=== PATIENT | female | born 1995 | race Hispanic/Latino ===

== ENCOUNTER 2017-03-20 12:48 | Emergency (ER) | payer OTHER, SELFPAY ==
[2017-03-20 13:17] LABS: Bilirubin Negative (Negative); Blood, Urine Trace (Negative); Glucose, Urine (Dipstick) Negative (Negative); Ketone, Urine Trace mg/dL (Negative); Nitrite Negative (Negative); Protein, Urine (Dipstick) Negative (Neg-Trace)
[2017-03-20 13:23] LABS: Bacteria/HPF 2+ HPF (None Seen); Hyaline Casts/LPF 4-6 HYALINE CAST LPF (0-3 Hyaline)
[2017-03-20 13:25] LABS: #Lymphocytes 1.1 thou/uL (1.20-3.40); #Monocytes 0.6 thou/uL (0.11-0.59); #Neutrophils 6.4 thou/uL (1.40-6.50); %Basophils 0.2 % (0.0-1.0); %Eosinophils 0.3 % (0.0-10.0); %Monocytes 6.7 % (0.0-4.0); Hematocrit 36.6 % (36.0-47.0); Mean Platelet Volume 7.8 fL (7.4-10.4); Red Blood Cell (RBC) Count 4.75 mill/uL (4.00-5.20); White Blood Cell (WBC) Count 8.2 thou/uL (4.8-10.8)
[2017-03-20 13:47] LABS: Anion Gap 13 mmol/L (10-20); BUN (Urea Nitrogen) 9 mg/dL (7.0-18.7); Calc. Creatinine Clearance 0 mL/min (70-130); Calcium 9.7 mg/dL (7.8-10.44); Carbon Dioxide 22 mmol/L (22-29); Chloride 104 mmol/L (98-107); Estimated GFR-MDRD Greater than 90
--- NOTE | 2017-03-20 14:44 | ULT ---
ULTRASOUND LESS THAN 14 WEEKS: History: 21-year-old female with positive home test with left sided abdominal pain for three days an d vaginal bleeding. FINDINGS: There is an early viable intrauterine fetus. heart rate 165 beats/minute. [place]-rump length 1.6 cm equalling 8 weeks 0 days. Gestational sac size 2.6 cm equalling 7 weeks 4 da ys. Right and left ovaries appear unremarkable. Vascular duplex with color and spectral doppler imaging of both ovaries demonstrates arterial end belkys w and venous outflow. No evidence of ovarian torsion. IMPRESSION: Early single viable intrauterine at 7 weeks 6 days with STACIE of 7-5-18. No evidence for retr o chorionic hemorrhage. POS: [facility]
== END 2017-03-20 15:15 | disposition home or self-care (01) ==
LOC: ERS 12:48
DX: O23.41 Unspecified infection of urinary tract in pregnancy, first trimester (principal); O99.511 Diseases of the respiratory system complicating pregnancy, first trimester; J45.909 Unspecified asthma, uncomplicated; Z3A.01 Less than 8 weeks gestation of pregnancy
CPT/HCPCS: 36415; 76856; 80048; 81003; 81015; 84702; 84703; 85025; 86850; 86900; 86901; 93976

== ENCOUNTER 2017-07-11 11:02 | Outpatient (CLI) | payer BC, OTHER | END 2017-07-11 11:03 | disposition home or self-care (01) | LOC: BICULT 11:02 | PROVIDERS: ATTEND Family Medicine | DX: Z34.82 Encounter for supervision of other normal pregnancy, second trimester (principal); Z3A.24 24 weeks gestation of pregnancy | CPT/HCPCS: 76805 ==

== ENCOUNTER 2017-10-04 21:24 | Day surgery (SDC) | payer OTHER, BC ==
[2017-10-04 21:52] VITALS: BMI 29.0
--- NOTE | 2017-10-04 22:30 | PDOC.LDHP ---
Labor and Delivery H&P Chief complaint: contractions HPI: 21 y/o at 36w3d, patient of Dr. Neva Haynes, presents with contractions for the last 2 hours. Denies VB, LOF, or decreased FM. ROS neg for HEENT, cv, pulm, gi, gu, neuro, psych, skin, musculoskeletal or constitutional sx other than mentioned above. OB History Details: 1 prior LTCS, 1 successful term Current complications: none Past Medical History: Asthma Current medications: pre- vitamins Previous surgical history: low tranverse CS Allergies/Adverse Reactions: Allergies Allergy/AdvReac Type Severity Reaction Status Date / Time No Known Allergies Allergy Verified 10/04/17 21:53 Social history: none - Physical Exam Vital signs reviewed and normal: yes General: NAD, resting Lungs: nonlabored breathing Abdomen: gravid Extremeties: no edema FHT: category 1 (140s, mod variability, + accels, single variable decel) [place] contractions every: occasional - Vaginal Exam cm dilated: 0 Effacement: 0% Station: -3 - Assessment 21 y/o at 36w3d with no e/o active labor. BPP ordered for single variable deceleration was 8/8 with normal DAMARIS. - Plan -: D/c home with precautions. Advised to keep all appointments.
--- NOTE | 2017-10-04 23:43 | ULT ---
ULTRASOUND BIOPHYSICAL PROFILE: 10/04/17 HISTORY: decelerations. 36 weeks. COMPARISON: None. FINDINGS: Single viable intrauterine . Amniotic fluid index measures 16.1 cm. heart rate documen tate at 130 beats per minute. Umbilical artery peak systolic velocity 58.6 cm/s, end diastolic velocit y 23.1 cm/s, systolic/diastolic ratio 2.54. The biophysical profile score is 8/8. Average ultrasound age of 35 weeks, 4 day. Estimated date of delivery 11/04/17. Biparietal diameter 35 week, 1 day, 8.7 cm Head circumference 35 week, 2 day, 31.47 cm Femur length 36 week, 1 day, 7.04 cm Cervical length is approximately 2.4 cm. IMPRESSION: Biophysical profile score of 8/8. POS: [facility]
== END 2017-10-05 00:10 | disposition home or self-care (01) ==
LOC: L&D/OP 21:24
PROVIDERS: ATTEND Family Medicine
DX: O47.03 False labor before 37 completed weeks of gestation, third trimester (principal); Z3A.36 36 weeks gestation of pregnancy; Z79.899 Other long term (current) drug therapy
CPT/HCPCS: 76819

== ENCOUNTER 2017-10-18 15:45 | Inpatient (IN) | payer BC, OTHER ==
[~2017-10-18 15:45] MED LIST: Bupivacaine/Epinephrine 0.25% 30 ML VIAL ONE
[2017-10-18 16:11] VITALS: BMI 31.8
--- NOTE | 2017-10-18 16:26 | PDOC.LDHP ---
Labor and Delivery H&P HPI: Patient of Dr Neva Dsouza, here for contractions. She desires TOLAC and has had one successful in the past. She is a 21 yo at 38 weeks, states contractions every 3 minutes but no ROM. She had her membranes stripped last saturday in the clinic by her report. Current gestational age (weeks): 38 (3 days) Due date: 10/29/17 Dating criteria: last menstrual period Grav: 3 Para: 2 OB History Details: First delivery was CS, second was Current complications: none Abnormal US findings: No Current medications: pre- vitamins Previous surgical history: low tranverse CS Allergies/Adverse Reactions: Allergies Allergy/AdvReac Type Severity Reaction Status Date / Time No Known Allergies Allergy Verified 10/04/17 21:53 - Physical Exam Vital signs reviewed and normal: yes General: NAD Heart: RRR Lungs: CTAB Abdomen: gravid Extremeties: no edema FHT: category 1, variability present [place] contractions every: every 3 -5 minutes - Vaginal Exam cm dilated: 4 Effacement: 75% Station: -2 - Assessment L&D Assessment: term patient in labor (latent phase, but with regular contactions. GBS unknown. Desires TOLAC and cleared by Dr Neva Dsouza.) - Plan Plan: admit to L&D, labor augmentation if indicated, informed consent obtained, anesthesia consult for pain management, other (We will contact dR Neva Dsouza to notify her of the admission. We will check GBS status from office. desired and patient aware of TOLAC. Hx successful in past.)
[2017-10-18] MEDS ORDERED: Lidocaine 1% (PF) 30 ML VIAL SC PRN (16:29)
[2017-10-18] MEDS ORDERED: Ibuprofen 800 MG TAB PO PRN (16:29)
[2017-10-18] MEDS ORDERED: Butorphanol Tartrate 1 MG/ML VIAL SLOW IVP PRN (16:29)
[2017-10-18] MEDS ORDERED: NS / Oxytocin 40 units/1000ml 1,000 ML IV PRN (16:29)
[2017-10-18] MEDS ORDERED: Promethazine HCl 25 MG/ML VIAL IM PRN ×2 (16:29→21:56)
[2017-10-18] MEDS ORDERED: HYDROcodone/Acetaminophen 5/325 mg Tablet PO PRN ×2 (16:29)
--- NOTE | 2017-10-18 16:55 | PDOC.EVN ---
Event Note - Event Note Event Note: TOLAC NOTE: I have discussed with the patient risks and benefits of TOLAC vs repeat CS. As she has had a successful previously, I do suggest a repeat TOLAC now. Risks of TOLAC reviewed. She is aware of elective Repeat CS option. She desires TOLAC.
[2017-10-18 17:08] LABS: Hemoglobin 10.5 g/dL (12.0-16.0); Mean Corpuscular HGB CONC 33.7 g/dL (32.0-36.0); Mean Corpuscular Hemoglobin 23.6 pg (25.0-35.0); Mean Corpuscular Volume 70.2 fL (78.0-98.0); Platelet Count 223 thou/uL (130-400); RBC Distribution Width 17.2 % (11.5-14.5); Red Blood Cell (RBC) Count 4.45 mill/uL (4.00-5.20); White Blood Cell (WBC) Count 11.8 thou/uL (4.8-10.8)
[2017-10-18] MEDS ORDERED: DISCONTINUE ALL PREVIOUS NARCOTICS FS SCH (17:15)
[2017-10-18] MEDS ORDERED: Bupivacaine 0.75% 13.4 ML, fentaNYL Citrate/PF 400 MCG in Sodium Chloride 0.9% 78.6 ML EPIDURAL SCH (17:15)
[2017-10-18] MEDS: Lactated Ringer's 1,000 ML IV SCH (17:20)
[2017-10-18 17:47] LABS: Syphilis Antibody Nonreactive (Nonreactive); Syphilis Antibody Index 0.01 S/CO (<1.00 Non-Reactive)
[2017-10-18 17:48] LABS: HBSAg Index 0.16 S/CO (0-0.99); HIV (1/2) Antibody/Antigen Non-Reactive (NonReactive); HIV 1/2 INDEX 0.14 S/CO (<1.00); Hep B Surf Ag Non-Reactive S/CO (NonReactive)
[2017-10-18] MEDS ORDERED: Ondansetron HCl/PF 4 MG/2 ML Vial IVP PRN (21:56)
[2017-10-18] MEDS ORDERED: Lactated Ringer's 500 ML IV PRN (21:56)
[2017-10-18] MEDS ORDERED: Acetaminophen 325 MG TAB PO PRN (21:56)
[2017-10-18] MEDS ORDERED: Eucerin (Mineral Oil/Petrolatum,White) 30 gm Jar TOP PRN (21:56)
[2017-10-18] MEDS ORDERED: ePHEDrine/0.9% NaCl/PF SYRINGE 50 mg/10 ml SLOW IVP PRN (21:56)
[2017-10-18] MEDS ORDERED: diphenhydrAMINE 50 MG/ML VIAL IVP PRN (21:56)
[2017-10-18] MEDS ORDERED: Naloxone HCl 0.4 mg/ml Vial IVP PRN ×2 (21:56)
[2017-10-18] MEDS ORDERED: Fentanyl 4mcg/Marcaine 0.1% Cassette 100 ML EPIDURAL SCH (22:00)
[2017-10-18] MEDS ORDERED: Communication Order-Pharmacy FS SCH (22:00)
[2017-10-19] MEDS ORDERED: traMADol HCl 50 MG TAB PO PRN (02:36)
[2017-10-19] MEDS ORDERED: Acetaminophen/Codeine 30-300mg Tablet PO PRN (02:36)
[2017-10-19] MEDS ORDERED: Lanolin Ointment 7 GM TUBE TOP PRN (02:36)
[2017-10-19] MEDS ORDERED: NS / Oxytocin 40 units/1000ml 1,000 ML IV SCH (02:36)
[2017-10-19] MEDS ORDERED: diphenhydrAMINE 25 MG CAP PO PRN (02:36)
[2017-10-19] MEDS ORDERED: HYDROcodone/Acetaminophen 5/325 mg Tablet PO PRN (02:36)
[2017-10-19] MEDS ORDERED: Milk Of Magnesia 30 ML UDCUP PO PRN (02:36)
[2017-10-19] MEDS ORDERED: Preparation H Ointment 28 GM TUBE PR PRN (02:36)
[2017-10-19] MEDS ORDERED: Benzocaine/Menthol 20-0.5% 60 ML CAN TOP PRN (02:36)
[2017-10-19] MEDS ORDERED: Bisacodyl 10 MG SUPP PR PRN (02:36)
[2017-10-19] MEDS ORDERED: Ondansetron HCl/PF 4 MG/2 ML Vial IVP PRN (02:36)
[2017-10-19] MEDS ORDERED: Docusate Calcium (SURFAK) 240 MG CAP PO SCH (03:15)
[2017-10-19] MEDS ORDERED: Ibuprofen 800 MG TAB PO SCH (03:15)
[2017-10-19 05:53] LABS: Hemoglobin 9.6 g/dL (12.0-16.0); Mean Corpuscular HGB CONC 33.7 g/dL (32.0-36.0); Mean Corpuscular Hemoglobin 23.9 pg (25.0-35.0); Mean Corpuscular Volume 70.8 fL (78.0-98.0); Mean Platelet Volume 8.5 fL (7.4-10.4); Platelet Count 175 thou/uL (130-400); RBC Distribution Width 17.5 % (11.5-14.5); White Blood Cell (WBC) Count 13.5 thou/uL (4.8-10.8)
[2017-10-19] MEDS: Ferrous Sulfate 325 MG TAB PO SCH ×2 (10:03→17:40)
[2017-10-19] MEDS: Docusate Calcium (SURFAK) 240 MG CAP PO SCH ×2 (10:03→20:47)
[2017-10-19] MEDS: Prenatal Vitamin 1 TAB PO SCH (10:03)
[2017-10-19] MEDS: Ibuprofen 800 MG TAB PO SCH ×2 (11:34→20:46)
[2017-10-19] MEDS: Lactated Ringer's 1,000 ML IV SCH (12:38)
[2017-10-19 21:29] VITALS: BP 120/68
[2017-10-20] MEDS: Ibuprofen 800 MG TAB PO SCH (05:53)
[2017-10-20] MEDS: Prenatal Vitamin 1 TAB PO SCH (09:05)
[2017-10-20] MEDS: Docusate Calcium (SURFAK) 240 MG CAP PO SCH (09:05)
[2017-10-20] MEDS: Ferrous Sulfate 325 MG TAB PO SCH (09:06)
[2017-10-20 09:38] VITALS: TEMP 98.7
== END 2017-10-20 12:40 | disposition home or self-care (01) | DRG 775 ==
LOC: L&D/OP 15:45 → L&D 16:56 → 3SW 10-19 03:11
PROVIDERS: ADMIT Family Medicine; ATTEND Family Medicine
PROC: 10E0XZZ Delivery of Products of Conception, External Approach (ICD-10-PCS; principal; 2017-10-18)
PROC: 10907ZC Drainage of Amniotic Fluid, Therapeutic from Products of Conception, Via Natural or Artificial Opening (ICD-10-PCS; 2017-10-18)
PROC: 10H07YZ Insertion of Other Device into Products of Conception, Via Natural or Artificial Opening (ICD-10-PCS; 2017-10-18)
DX: O34.211 Maternal care for low transverse scar from previous cesarean delivery (principal); N85.8 Other specified noninflammatory disorders of uterus; Z3A.38 38 weeks gestation of pregnancy; Z37.0 Single live birth
CPT/HCPCS: 36415; 51702; 85027; 86780; 86850; 86900; 86901; 87340; 87389; 99285; J2001; J3010; J7050

== ENCOUNTER 2018-07-18 16:52 | Emergency (ER) | payer BC, OTHER ==
[2018-07-18 19:14] LABS: #Eosinphils 0.2 thou/uL (0.0-0.7); #Lymphocytes 3.1 thou/uL (1.20-3.40); #Monocytes 0.7 thou/uL (0.11-0.59); #Neutrophils 7.3 thou/uL (1.40-6.50); %Basophils 0.4 % (0.0-1.0); %Eosinophils 1.5 % (0.0-10.0); %Lymphocytes 27.2 % (21.0-51.0); %Monocytes 5.8 % (0.0-10.0); %Neutrophils 65.1 % (42.0-75.0); Mean Corpuscular HGB CONC 33.8 g/dL (32.0-36.0); Mean Corpuscular Hemoglobin 26.8 pg (27.0-31.0); Mean Corpuscular Volume 79.3 fL (78.0-98.0); Mean Platelet Volume 7.3 fL (7.4-10.4); Platelet Count 280 thou/uL (130-400); RBC Distribution Width 13.1 % (11.5-14.5); Red Blood Cell (RBC) Count 5.22 mill/uL (4.20-5.40); White Blood Cell (WBC) Count 11.2 thou/uL (4.8-10.8)
[2018-07-18 19:26] LABS: INR-International Normal Ratio 0.9; PTT 30.3 SEC (22.9-36.1); Prothrombin Time 12.6 SEC (12.0-14.7)
[2018-07-18 19:28] LABS: ALT (SGPT) 10 U/L (8-55); AST (SGOT) 13 U/L (5-34); Albumin 4.6 g/dL (3.5-5.0); Alkaline Phosphatase 93 U/L (40-150); Anion Gap 11 mmol/L (10-20); BUN (Urea Nitrogen) 17 mg/dL (7.0-18.7); Bilirubin, Total 0.2 mg/dL (0.2-1.2); Calc. Creatinine Clearance 0 mL/min (70-130); Calcium 9.9 mg/dL (7.8-10.44); Carbon Dioxide 27 mmol/L (22-29); Chloride 103 mmol/L (98-107); Estimated GFR-MDRD Greater than 90; Globulin 3.1 g/dL (2.4-3.5); Glucose 84 mg/dL (70-105); Potassium 3.9 mmol/L (3.5-5.1); Protein, Total 7.7 g/dL (6.0-8.3); Sodium 137 mmol/L (136-145)
== END 2018-07-18 20:33 | disposition home or self-care (01) ==
LOC: ERS 16:52
DX: K64.8 Other hemorrhoids (principal); J45.909 Unspecified asthma, uncomplicated
CPT/HCPCS: 80053; 82274; 85025; 85610; 85730; 86850; 86900; 86901; 99283

== ENCOUNTER 2019-01-15 14:38 | Outpatient (CLI) | payer BC, MEDICAID ==
--- NOTE | 2019-01-15 16:11 | ULT ---
OB ULTRASOUND: 01/15/19 HISTORY: anatomy. FINDINGS: A single live intrauterine gestation is seen with measurements corresponding to an estimated gestatio nal age of 26 weeks, 3 days and STACIE at 04/20/19. The estimated weight measures 960 grams or 2 lb. 2 oz. measurements are as follows: BPD 6.52 cm 26 weeks, 2 days HC 23.9 cm 26 weeks, 0 days AC 22.22 cm 26 weeks, 5 days FL 4.98 cm 26 weeks, 3 days heart rate measures 149 beats per minute. DAMARIS measures 18.9 cm. The placenta is anteriorly loca tate without evidence of placenta previa. A three vessel cord, cord insertion, kidneys, bladder, stomach, four chambered heart, lateral ventricles, cerebellum, spine, nose/lips, upper and lower extremities are visualized and appear jenise l. No definite anomalies are seen. IMPRESSION: Single live IUP of 26 weeks, 3 days estimated gestational age and STACIE at 04/20/19. POS: [facility]
== END 2019-01-15 14:39 | disposition home or self-care (01) ==
LOC: ULT 14:38
PROVIDERS: ATTEND Family Medicine
DX: Z34.93 Encounter for supervision of normal pregnancy, unspecified, third trimester (principal); Z3A.26 26 weeks gestation of pregnancy
CPT/HCPCS: 76805

== ENCOUNTER 2019-01-17 21:16 | Day surgery (SDC) | payer BC, MEDICAID ==
[2019-01-17 21:46] VITALS: BMI 32.4
[2019-01-17] MEDS ORDERED: hydrALAZINE 20 MG/ML VIAL SLOW IVP PRN (22:31)
[2019-01-17 22:49] LABS: Bilirubin Negative (Negative); Blood, Urine Negative (Negative); Clarity Clear (Clear); Glucose, Urine (Dipstick) Normal (Negative); Leukocyte 25 Leu/uL (Negative); Mucous/LPF Rare LPF (<2+); Nitrite Negative (Negative); Protein, Urine (Dipstick) Negative (Neg-Trace); RBC/HPF 0-3 HPF (0-3); Squamous Epithelial 0-3 HPF (0-3); Urobilinogen Normal mg/dL (Less than 2); WBC/HPF 0-3 HPF (0-3)
--- NOTE | 2019-01-17 22:55 | PDOC.FPROB ---
FMR OB H&P: HPI - History of Present Illness Chief Complaint: Back pain, contractions, pelvic pain Indentification: 23yo @26.5wks by 26.3wk US History of Present Illness: 23yo @26.5wks by 26.3wk US presents with back pain, ctx's and pelvic pressure. Reports back pain started around 1400, followed by contractions 5- 10min apart. Later she started to have constant pelvic pressure. Endorses FM. Denies VB, LOF, abnormal discharge, dysuria. Has intermittent headaches but resolved with Tylenol earlier. She just established care 01/14 Primary Care Physician: Dr Neva Haynes FMR OB H&P: Current - Care : 4 Para: 3 Gestational age: 26.5wks FMR OB H&P: History - Past Medical History PMH: None - Social History Social History: Denies alcohol, tobacco and drug use. - Family History Family History: Noncontributory FMR OB H&P: Medications - Current Home Medications: Medication Instructions Recorded Confirmed Type Ferrous Sulfate 325 mg PO TID 10/04/17 01/17/19 History 21/Iron Fu/Folic Acid 1 tablet PO DAILY 10/04/17 01/17/19 History [ Complete Caplet] Allergies/Adverse Reactions: Allergies Allergy/AdvReac Type Severity Reaction Status Date / Time No Known Allergies Allergy Verified 10/04/17 21:53 FMR OB H&P: ROS - Review of Systems General: denies: fever/chills, fatigue Eyes: denies: vision changes, double vision ENT: denies: nasal congestion, rhinorrhea Cardiovascular: denies: chest pain, palpitation Respiratory: denies: cough, shortness of breath Gastrointestinal: denies: abdominal pain, nausea, vomiting Genitourinary (Female): reports: contractions, vaginal pressure. denies: dysuria, hematuria Musculoskeletal: reports: other (back pain). denies: swelling Neurologic: denies: weakness, headache Integumentary: denies: itching, rash FMR OB H&P: Vital Signs - Heart Tones [place] contractions every: None FMR OB H&P: Physical Exam - Physical Exam General: NAD, awake, alert and oriented HEENT: normocephalic and atraumatic, MMM, conjunctiva clear, grossly normal hearing, oropharynx clear Neck: supple, trachea midline Heart: RRR, no murmurs/rubs/gallops General: CTAB, no respiratory distress Abdomen: soft, gravid, non-tender, bowel sound present Musculoskeletal: pulses present, no misalignment/asymmetry, no atrophy Neurological: no focal deficit Skin: no rash, good tugor Psychiatric: intact recent and remote memory, good judgement and insight, normal mood and affect FMR OB H&P: A/P Disposition: 23yo @26.5wks by 26.3wk US sIUP - Not ryanne on monitor - Will check UA and FFN - If FFN negative will do SVE Discussion: Date/Time: 01/17/19 9890 This H&P was discussed with Dr. Herrera who saw the pt and agrees with the above documentation and plan.
[2019-01-17 23:03] LABS: Bacteria/HPF Rare-Few HPF (None Seen)
[2019-01-17 23:04] LABS: Urine Culture Reflex No No
[2019-01-17 23:10] LABS: FFN Internal QC Analyzer PASS (PASS); FFN Internal QC Cassette PASS (PASS); Fetal Fibronectin Negative (Negative)
--- NOTE | 2019-01-18 00:06 | PDOC.EVN ---
Event Note - Event Note Event Note: UA and FFN negative. SVE c/t/high. Not ryanne on monitor. No concern for labor Instructed to follow up with Dr Neva Haynes for routine prental care Addendum - Attending - Attending Attestation Date/Time: 01/18/19 0588 I personally evaluated the patient and discussed the management with Dr. Cody. I agree with the Assessment and Plan documented above.
== END 2019-01-18 00:15 | disposition home or self-care (01) ==
LOC: L&D/OP 21:16
PROVIDERS: ATTEND Family Medicine
DX: O47.02 False labor before 37 completed weeks of gestation, second trimester (principal); O99.89 Other specified diseases and conditions complicating pregnancy, childbirth and the puerperium; R10.2 Pelvic and perineal pain; M54.9 Dorsalgia, unspecified; Z3A.26 26 weeks gestation of pregnancy; Z79.899 Other long term (current) drug therapy
CPT/HCPCS: 36415; 81001; 82731

== ENCOUNTER 2019-07-06 14:44 | Outpatient (CLI) | payer BC, MEDICAID ==
--- NOTE | 2019-07-06 15:27 | ULT ---
US Pelvic W Doppler History: Comparison: Ultrasound OB complete December 2018 Findings: Real-time grayscale color and spectral analysis of the pelvis was performed transabdominal approach. The uterus measures 11.8 x 9.8 x 7.6 cm. Both ovaries are normal with adequate vascular flow. Single viable intrauterine with average ultrasound age 8 week 4 day with estimated date of delivery February 11, 2020. There is intrauterine gestational sac with mean sac diameter 3.31 cm. No sac measures 0.25 cm. [place]- rump length is 18.77 mm. No significant subchorionic hemorrhage. The cervix is closed. The heart rate is documented at 161 bpm Impression: Normal single viable intrauterine .
== END 2019-07-06 14:45 | disposition home or self-care (01) ==
LOC: BICULT 14:44
PROVIDERS: ATTEND Family Medicine
DX: Z34.81 Encounter for supervision of other normal pregnancy, first trimester (principal); Z3A.08 8 weeks gestation of pregnancy
CPT/HCPCS: 76856; 93976

== ENCOUNTER 2020-01-22 05:50 | Day surgery (SDC) | payer BC, OTHER ==
[2020-01-22 06:29] VITALS: BP 101/60; TEMP 98.4; BMI 38.2
[2020-01-22] MEDS: Lactated Ringer's 1,000 ML IV SCH ×2 (08:30→10:02)
[2020-01-22] MEDS ORDERED: hydrALAZINE 20 MG/ML VIAL SLOW IVP PRN (10:46)
--- NOTE | 2020-01-22 11:17 | PRG ---
DATE OF SERVICE: 01/22/2020 PRIMARY OB: Dr. Laure Gonzalez. CHIEF COMPLAINT: Abdominal pain. HISTORY OF PRESENT ILLNESS: The patient is a 24-year-old, G5, P4 female with an intrauterine at 37 weeks and 3 days, presenting to Labor and Delivery with uterine contractions that she says she feels about every 3 to 6 minutes, feel like there were strongest menstrual cramps she has ever had. The patient denies any leakage of fluid or vaginal bleeding. She does have a history of deliveries between 35 and 38 weeks. She has had 3 successful vaginal births after . The patient denies fever, cough, headache, chest pain, shortness of breath, nausea, vomiting, diarrhea, constipation, hip problems, knee problems, muscle weakness. She denies any new rashes, any vaginal bleeding, leakage of fluid, urinary urgency or frequency. PAST MEDICAL HISTORY: Negative. PAST SURGICAL HISTORY: She has had one prior , again followed by 3 subsequent successful VBACs. SOCIAL HISTORY: Denies drug, alcohol, or tobacco use and lives in town. ALLERGIES: NO KNOWN DRUG ALLERGIES. MEDICATIONS: vitamins. REVIEW OF SYSTEMS: Per HPI. PHYSICAL EXAMINATION: VITAL SIGNS: Blood pressure is 101/60, heart rate of 90, respiratory rate of 16, temperature 98.3. GENERAL: She appears to be in no acute distress. She is alert, oriented, cooperative, and pleasant to interact with. HEAD: Normocephalic and atraumatic. LUNGS: Clear to auscultation bilaterally. HEART: Has a regular rate and rhythm. ABDOMEN: Gravid, soft, nontender. EXTREMITIES: Nontender, nonedematous. CERVICAL: 4, 70, -2 station; 4, 50, -2 station unchanged after 4 hours. heart tracing shows a baseline in the 130s with moderate long-term variability, positive 15 x 15 accelerations, no decelerations. The patient is having some irritability, but no real regular contraction pattern. ASSESSMENT AND PLAN: The patient is a 24-year-old, G5, P4 female with an intrauterine at 37 weeks and 3 days, having uterine contractions, but no evidence of labor. The patient was 3 cm in the office couple of days ago. She has been given 4 hours of monitoring here without change and has been given being discharged home with strict instructions to return should her contractions worsen or her water breaks or any other concerns. Fetus has a category 1 tracing and reactive NST. Job ID: [id number]
== END 2020-01-22 10:37 | disposition home or self-care (01) ==
LOC: L&D/OP 05:50
PROVIDERS: ATTEND Obstetrics & Gynecology
DX: O47.1 False labor at or after 37 completed weeks of gestation (principal); O34.219 Maternal care for unspecified type scar from previous cesarean delivery; Z3A.37 37 weeks gestation of pregnancy; Z79.899 Other long term (current) drug therapy
CPT/HCPCS: 96360; 96361; 99283

== ENCOUNTER 2021-08-17 19:37 | Observation (INO) | payer BC, OTHER ==
[2021-08-17 20:24] LABS: #Eosinphils 0.1 thou/uL (0.0-0.7); #Lymphocytes 3.1 thou/uL (1.20-3.40); #Monocytes 0.7 thou/uL (0.11-0.59); %Basophils 0.2 % (0.0-1.0); %Eosinophils 0.7 % (0.0-10.0); %Lymphocytes 18.3 % (21.0-51.0); %Monocytes 4.4 % (0.0-10.0); %Neutrophils 76.4 % (42.0-75.0); Hemoglobin 13.7 g/dL (12.0-16.0); Mean Corpuscular HGB CONC 33.9 g/dL (32.0-36.0); Mean Corpuscular Volume 82.5 fL (78.0-98.0); Mean Platelet Volume 6.9 fL (7.4-10.4); Platelet Count 296 thou/uL (130-400); White Blood Cell (WBC) Count 17.1 thou/uL (4.8-10.8)
[2021-08-17 20:25] LABS: Bilirubin Negative (Negative); Blood, Urine 1+ (Negative); Clarity Clear (Clear); Glucose, Urine (Dipstick) Normal (Negative); Ketone, Urine Negative (Negative); Leukocyte Negative Leu/uL (Negative); Nitrite Negative (Negative); Protein, Urine (Dipstick) Negative (Neg-Trace); Specific Gravity, Urine 1.023 (1.002-1.036); Squamous Epithelial 0-3 HPF (0-3); Urobilinogen Normal mg/dL (Less than 2); WBC/HPF 0-3 HPF (0-3)
[2021-08-17 20:26] LABS: Bacteria/HPF Rare-Few HPF (None Seen)
[2021-08-17 20:36] LABS: BHCG - Serum Negative (NEGATIVE); Pregs Control Background? CLEAR/WHITE (CLR/WHITE); Pregs Control Bar Appear? YES (CONTROL BAR)
[2021-08-17 20:43] LABS: ALT (SGPT) 8 U/L (8-55); AST (SGOT) 10 U/L (5-34); Albumin 4.2 g/dL (3.5-5.0); Alkaline Phosphatase 86 U/L (40-110); Anion Gap 13 mmol/L (10-20); BUN (Urea Nitrogen) 8 mg/dL (7.0-18.7); Bilirubin, Total 0.3 mg/dL (0.2-1.2); Calc. Creatinine Clearance 0 mL/min (70-130); Calcium 9.1 mg/dL (7.8-10.44); Carbon Dioxide 24 mmol/L (22-29); Chloride 105 mmol/L (98-107); Globulin 3.2 g/dL (2.4-3.5); Glucose 93 mg/dL (70-105); Lipase 16 U/L (8-78); Potassium 3.6 mmol/L (3.5-5.1); Protein, Total 7.4 g/dL (6.0-8.3); Sodium 138 mmol/L (136-145)
[2021-08-17] MEDS ORDERED: Morphine 4 MG/ML VIAL ONE (20:43)
[2021-08-17] MEDS ORDERED: Ondansetron PF 4 MG/2 ML Vial ONE (20:43)
[2021-08-17] MEDS ORDERED: Piperacillin/Tazobactam 3.375 GM VIAL ONE (23:37)
[2021-08-18 00:44] VITALS: BMI 41.6
[2021-08-18] MEDS ORDERED: Sodium Chloride 0.9% 1,000 ML IV SCH ×3 (00:45→09:16)
[2021-08-18] MEDS ORDERED: Ondansetron ODT 4 MG TAB SL PRN (00:45)
[2021-08-18] MEDS ORDERED: Ondansetron PF 4 MG/2 ML Vial IVP PRN (00:45)
[2021-08-18] MEDS: Morphine 4 MG/ML VIAL SLOW IVP PRN ×2 (00:56→09:06)
[2021-08-18 02:44] LABS: SARS-CoV-2 NAA Rapid Test Not Detected (NotDetected)
[2021-08-18] MEDS: Piperacillin/Tazobactam 3.375 GM in Sodium Chloride 0.9% 100 ML IVPB SCH ×2 (03:48→09:04)
[2021-08-18 07:59] VITALS: BP 108/69; TEMP 98.3
[2021-08-18] MEDS ORDERED: Scopolamine 1.5 mg/72 hour Patch TD SCH (09:00)
[2021-08-18] MEDS ORDERED: traMADol HCl 50 MG TAB PO PRN (09:13)
[2021-08-18] MEDS ORDERED: Ketorolac Tromethamine 30 MG/ML VIAL IVP PRN (09:13)
[2021-08-18] MEDS ORDERED: Acetaminophen 500 MG TAB PO PRN (09:13)
[2021-08-18] MEDS ORDERED: Acetaminophen 500 MG TAB PO SCH (09:15)
[2021-08-18] MEDS ORDERED: Ketorolac Tromethamine 30 MG/ML VIAL IVP SCH (09:15)
[2021-08-18] MEDS ORDERED: Ibuprofen 600 MG TAB PO PRN (09:15)
[2021-08-18] MEDS ORDERED: Bupivacaine PF 0.5% 30 ML VIAL ONE (12:03)
[2021-08-18] MEDS ORDERED: Lidocaine 1% w/Epinephrine 1:100K 20 ML VIAL ONE (12:03)
[2021-08-18] MEDS ORDERED: PHENYLEPHRINE-NS 100 MCG/ML 10 ML SYRINGE ONE (12:34)
[2021-08-18] MEDS ORDERED: Succinylcholine 200 MG/10 ml SYRINGE FS ONE (12:34)
[2021-08-18] MEDS ORDERED: Rocuronium Bromide 10 MG/ML (10ML VIAL) ONE (12:34)
[2021-08-18] MEDS ORDERED: Lidocaine 1% PF 5 ML VIAL ONE (12:34)
[2021-08-18] MEDS ORDERED: PROPOFOL 200 MG/20 ML VIAL ONE (12:34)
[2021-08-18] MEDS ORDERED: Fentanyl 100 MCG/2 ML VIAL ONE (12:41)
[2021-08-18] MEDS ORDERED: Piperacillin/Tazobactam 3.375 GM in Sodium Chloride 0.9% 100 ML IVPB SCH ×2 (14:00→18:00)
== END 2021-08-18 16:05 | disposition home or self-care (01) ==
LOC: ERS 19:37 → INTOOBSV 22:34 → SURG A 22:34
PROVIDERS: ADMIT Specialist; ATTEND Specialist
PROC: 0DTJ4ZZ Resection of Appendix, Percutaneous Endoscopic Approach (ICD-10-PCS; principal; 2021-08-18)
DX: K35.80 Unspecified acute appendicitis (principal); K38.1 Appendicular concretions; Z20.822 Contact with and (suspected) exposure to COVID-19
CPT/HCPCS: 36415; 74177; 80053; 81003; 81015; 83690; 84703; 85025; 88304; 94760; 96365; 96375; A4649; J1885; J2270; J2405; J2543; J2704; J3010; J3490; J7050; S0020; U0002